=== PATIENT | male | born 1990 | race Caucasian/White ===

== ENCOUNTER 2020-06-02 22:10 | Emergency (ER) | payer OTHER ==
[~2020-06-02] VITALS: Ht 193 cm; Wt 83.9 kg
--- NOTE | 2020-06-02 22:35 | NUR ---
HANNA COMPLETED, PT D/C'D HOME WITH ACI/RX X3. PT REFUSED CRUTCHES AND CANE, STATED HE WOULD BUY AT [employer] INSTEAD, PT TRANSPORTED VIA W/C TO PRIVATE [facility].
[2020-06-02 22:36] VITALS: BP 156/92
== END 2020-06-02 22:37 | disposition home or self-care (01) ==
LOC: ER 22:15
DX: L03.116 Cellulitis of left lower limb (principal); S90.812A Abrasion, left foot, initial encounter; S50.312A Abrasion of left elbow, initial encounter; S80.212A Abrasion, left knee, initial encounter; V98.8XXA Other specified transport accidents, initial encounter; Y93.89 Activity, other specified; Y92.488 Other paved roadways as the place of occurrence of the external cause
CPT/HCPCS: A4663